=== PATIENT | female | born 1980 | race Hispanic/Latino ===

== ENCOUNTER 2018-07-14 19:43 | Day surgery (SDC) | payer OTHER ==
[2018-07-14 20:19] VITALS: BMI 34.6
--- NOTE | 2018-07-14 21:29 | ER ---
DATE OF SERVICE: 07/14/2018 TIME OF SERVICE: 2055 hours. PRESENTING COMPLAINT: Occasional contractions at 37 weeks. HISTORY OF PRESENT ILLNESS: Ms. Esteban Zee is a 38-year-old, G9, P6, AB2 at 37-1/2 weeks gestation, who sees Dr. Addison. Antepartum record is not available on the unit. The patient reports she had intercourse last night, had some contractions today. Denies rupture of membranes. Denies bleeding. Reports an active fetus. 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 No labs are available in the [facility] computer. The patient reports an uncomplicated . Reports x6, SAB x2. MEDICAL HISTORY: Denies. SURGICAL HISTORY: Denies. ALLERGIES: DENIES. MEDICATIONS: vitamins. SOCIAL HISTORY: Denies tobacco, alcohol, or drug use. FAMILY HISTORY: Noncontributory. REVIEW OF SYSTEMS: Noncontributory. PHYSICAL EXAMINATION: GENERAL: female, in no acute distress. VITAL SIGNS: Blood pressure 108/72, pulse 85, respirations 18, and temperature 96. HEENT: Within normal limits. LUNGS: Clear to auscultation bilaterally. HEART: Regular rate and rhythm. ABDOMEN: Soft, nontender. No rebound. No guarding. No palpable contractions. GENITALIA: Vulva without lesions. Vaginal exam by RN reveals cervix is 3, 50, -2, cephalic, bag of water intact, ballots with ease. This is consistent with the patient's reported exam was in the office last week. monitoring is carried out for greater than 30 minutes revealed a baseline of 140s to 150s, positive accelerations to greater than 160. No decelerations. Only occasional uterine irritability less than q.15 minutes. IMPRESSION: Grand multiparas, elderly multigravida patient without evidence of active labor at 37 weeks' gestation. PLAN: Discharge home, keep scheduled followup with Dr. Addison. Job ID: [id number]
== END 2018-07-14 21:11 | disposition home or self-care (01) ==
LOC: L&D/OP 19:43
PROVIDERS: ATTEND Family Medicine
DX: O47.1 False labor at or after 37 completed weeks of gestation (principal); Z3A.37 37 weeks gestation of pregnancy
CPT/HCPCS: 99282

== ENCOUNTER 2018-07-29 05:30 | Inpatient (IN) | payer MEDICAID, OTHER, SELFPAY ==
[2018-07-29] MEDS: Lactated Ringer's 1,000 ML IV SCH ×2 (07:40→10:41)
[2018-07-29 07:49] VITALS: BMI 34.6
[2018-07-29] MEDS ORDERED: Methylergonovine 0.2 MG/ML VIAL IM PRN (08:03)
[2018-07-29] MEDS ORDERED: Butorphanol Tartrate 1 MG/ML VIAL SLOW IVP PRN (08:03)
[2018-07-29] MEDS ORDERED: Ibuprofen 800 MG TAB PO PRN (08:03)
[2018-07-29] MEDS ORDERED: Promethazine HCl 25 MG/ML VIAL IM PRN ×2 (08:03→10:56)
[2018-07-29] MEDS ORDERED: Misoprostol 200 MCG TAB PR PRN (08:03)
[2018-07-29] MEDS ORDERED: Lidocaine 1% (PF) 30 ML VIAL SC PRN (08:03)
[2018-07-29] MEDS ORDERED: Ondansetron PF 4 MG/2 ML Vial IVP PRN ×3 (08:03→14:13)
[2018-07-29] MEDS ORDERED: NS / Oxytocin 40 units/1000ml 1,000 ML IV PRN (08:03)
[2018-07-29] MEDS ORDERED: HYDROcodone/Acetaminophen 5/325 mg Tablet PO PRN ×3 (08:03→14:13)
[2018-07-29] MEDS ORDERED: NS w/ Oxytocin 10 units 500 ML IV SCH ×2 (08:03)
[2018-07-29] MEDS ORDERED: Diphenoxylate HCl/Atropine Tablet PO PRN (08:03)
[2018-07-29] MEDS ORDERED: Carboprost 250 MCG/ML AMP IM PRN (08:03)
[2018-07-29 08:27] LABS: Hemoglobin 11.6 g/dL (12.0-16.0); Mean Corpuscular HGB CONC 33.2 g/dL (32.0-36.0); Mean Corpuscular Hemoglobin 29.2 pg (27.0-31.0); Mean Corpuscular Volume 87.9 fL (78.0-98.0); Mean Platelet Volume 7.6 fL (7.4-10.4); Platelet Count 233 thou/uL (130-400); RBC Distribution Width 12.1 % (11.5-14.5); Red Blood Cell (RBC) Count 3.97 mill/uL (4.20-5.40); White Blood Cell (WBC) Count 8.2 thou/uL (4.8-10.8)
[2018-07-29 08:59] LABS: Syphilis Antibody Nonreactive (Nonreactive); Syphilis Antibody Index 0.03 S/CO (<1.00 Non-Reactive)
[2018-07-29 09:00] LABS: HBSAg Index 0.33 S/CO (0-0.99); Hep B Surf Ag Non-Reactive S/CO (NonReactive)
[2018-07-29] MEDS ORDERED: Fentanyl 4 mcg/Bup 0.1% Cadd 0 ML ONE (10:16)
[2018-07-29] MEDS ORDERED: Fentanyl 4 mcg/Bup 0.1% Cadd 100 ML ONE (10:17)
[2018-07-29] MEDS ORDERED: Lidocaine 1.5%/Epinephrine 1:200,000 5 ML AMPUL IJ ONE (10:33)
[2018-07-29] MEDS ORDERED: ePHEDrine/0.9% NaCl/PF SYRINGE 50 mg/10 ml SLOW IVP PRN (10:56)
[2018-07-29] MEDS ORDERED: Acetaminophen 325 MG TAB PO PRN (10:56)
[2018-07-29] MEDS ORDERED: diphenhydrAMINE 50 MG/ML VIAL IVP PRN (10:56)
[2018-07-29] MEDS ORDERED: Naloxone HCl 0.4 mg/ml Vial IVP PRN ×2 (10:56)
[2018-07-29] MEDS ORDERED: Eucerin (Mineral Oil/Petrolatum,White) 30 gm Jar TOP PRN (10:56)
[2018-07-29] MEDS ORDERED: Lactated Ringer's 500 ML IV PRN (10:56)
[2018-07-29] MEDS ORDERED: Communication Order-Pharmacy FS SCH (11:00)
[2018-07-29] MEDS ORDERED: Fentanyl 4 mcg/Bupivacaine 0.1% Cassette 100 ML EPIDURAL SCH (11:00)
[2018-07-29] MEDS ORDERED: Bupivacaine 0.25% HCL 30 ML VIAL ONE (11:11)
[2018-07-29] MEDS ORDERED: Sodium Chloride 0.9% (PF) 10 ML VIAL ONE (11:11)
[2018-07-29] MEDS ORDERED: Bisacodyl 10 MG SUPP PR PRN (14:13)
[2018-07-29] MEDS ORDERED: Lanolin Ointment 7 GM TUBE TOP PRN (14:13)
[2018-07-29] MEDS ORDERED: Benzocaine-Menthol 82.5 ML CAN TOP PRN (14:13)
[2018-07-29] MEDS ORDERED: NS / Oxytocin 40 units/1000ml 1,000 ML IV SCH (14:13)
[2018-07-29] MEDS ORDERED: Milk Of Magnesia 30 ML UDCUP PO PRN (14:13)
[2018-07-29] MEDS ORDERED: diphenhydrAMINE 25 MG CAP PO PRN (14:13)
[2018-07-29] MEDS: Ibuprofen 800 MG TAB PO SCH ×2 (14:31→21:25)
[2018-07-29] MEDS: Ferrous Sulfate 325 MG TAB PO SCH (18:11)
[2018-07-29] MEDS: Docusate Calcium (SURFAK) 240 MG CAP PO SCH (21:25)
[2018-07-30] MEDS: Ibuprofen 800 MG TAB PO SCH ×2 (05:12→13:58)
[2018-07-30 05:32] LABS: Hemoglobin 10.6 g/dL (12.0-16.0); Mean Corpuscular HGB CONC 33.4 g/dL (32.0-36.0); Mean Corpuscular Hemoglobin 29.9 pg (27.0-31.0); Mean Corpuscular Volume 89.4 fL (78.0-98.0); Mean Platelet Volume 7.8 fL (7.4-10.4); Platelet Count 200 thou/uL (130-400); RBC Distribution Width 12.1 % (11.5-14.5); Red Blood Cell (RBC) Count 3.54 mill/uL (4.20-5.40); White Blood Cell (WBC) Count 9.3 thou/uL (4.8-10.8)
[2018-07-30] MEDS ORDERED: Prenatal Vitamin 1 TAB PO SCH (09:00)
[2018-07-30] MEDS: Ferrous Sulfate 325 MG TAB PO SCH (10:30)
[2018-07-30] MEDS: Docusate Calcium (SURFAK) 240 MG CAP PO SCH (10:30)
[2018-07-30 11:19] VITALS: BP 101/55; TEMP 98.2
== END 2018-07-30 15:25 | disposition home or self-care (01) | DRG 807 ==
LOC: L&D 07:22 → 3SW 15:27
PROVIDERS: ADMIT Family Medicine; ATTEND Family Medicine
PROC: 10E0XZZ Delivery of Products of Conception, External Approach (ICD-10-PCS; principal; 2018-07-29)
PROC: 10907ZC Drainage of Amniotic Fluid, Therapeutic from Products of Conception, Via Natural or Artificial Opening (ICD-10-PCS; 2018-07-29)
PROC: 3E033VJ Introduction of Other Hormone into Peripheral Vein, Percutaneous Approach (ICD-10-PCS; 2018-07-29)
DX: O80 Encounter for full-term uncomplicated delivery (principal); Z37.0 Single live birth; Z3A.39 39 weeks gestation of pregnancy; Z67.40 Type O blood, Rh positive
CPT/HCPCS: 36415; 51702; 85027; 86780; 86850; 86900; 86901; 87340; J2590; J3490; S0020

== ENCOUNTER 2019-04-30 14:52 | Outpatient (CLI) | payer OTHER ==
--- NOTE | 2019-04-30 16:09 | ULT ---
OB ultrasound: HISTORY: anatomy FINDINGS: A single live intrauterine gestation is seen with measurements corresponding to an estimated gestatio nal age of 23 weeks 0 days and FLAKO at 08/27/2019. The estimated weight measures 551 g or 1 pound and 3 ounces; 18 percentile by Hadlock criteria. measurements are as follows: BPD: 5.56 cm, 23 weeks 0 days HC: 20.86 cm, 23 weeks 0 days AC: 18.15 cm, 23 weeks 0 days FL: 4.01 cm, 23 weeks 0 days heart rate measures 135 bpm. LEYLA measures 14.3 cm. Placenta is posteriorly located without evid ence of placenta previa. Cervical length measures 5 cm. A three-vessel cord, cord insertion, kidneys, bladder, stomach, four chambered heart, lateral v entricles, cerebellum, spine, lips/nose, upper and lower extremities are visualized. No definite anomalies are seen. IMPRESSION: Single live IUP of 23 weeks 0 days estimated gestational age and FLAKO at 08/27/2019. Transcribed Date/Time: 04/30/2019 4:15 PM
== END 2019-04-30 14:53 | disposition home or self-care (01) ==
LOC: BICULT 14:52
PROVIDERS: ATTEND Nurse Practitioner
DX: O09.92 Supervision of high risk pregnancy, unspecified, second trimester (principal); Z3A.23 23 weeks gestation of pregnancy
CPT/HCPCS: 76805

== ENCOUNTER 2019-08-13 12:25 | Day surgery (SDC) | payer OTHER ==
[2019-08-13 12:34] VITALS: BP 115/57; TEMP 98.7; BMI 38.4
--- NOTE | 2019-08-13 15:26 | ULT ---
ULTRASOUND OB LIMITED WITH BIOPHYSICAL PROFILE: HISTORY: Failed non-stress test. COMPARISON: None. FINDINGS: Rela-time, sue scale, with color and spectral analysis of the gravid uterus was performed via transa bdominal approach. Single viable intrauterine with average ultrasound age 38 weeks 0 days, estimated date of d elivery 08/27/2019. Estimated weight is 7 pounds 1 ounce. Biometry: Biparietal diameter: 9.33 cm, 38 weeks 0 days. Head circumference: 34.62 cm, 40 weeks 1 day. Abdominal circumference: 32.93 cm, 36 weeks 6 days. Femur length: 7.24 cm, 37 weeks 0 days. LEYLA: 10.6 cm. Heart rate documented at 132 b.p.m. Biophysical profile score of 8/8. The position is vertex and placenta is posterior. IMPRESSION: Biophysical profile score of 8/8. POS: [facility]
== END 2019-08-13 14:16 | disposition home health service (06) ==
LOC: L&D/OP 12:25
PROVIDERS: ATTEND Family Medicine
DX: O36.8130 Decreased fetal movements, third trimester, not applicable or unspecified (principal); Z3A.38 38 weeks gestation of pregnancy
CPT/HCPCS: 59025; 76815; 76819; 99282

== ENCOUNTER 2019-08-17 05:30 | Inpatient (IN) | payer MEDICAID, OTHER, SELFPAY ==
[2019-08-17] MEDS ORDERED: Ibuprofen 800 MG TAB PO PRN (07:49)
[2019-08-17] MEDS ORDERED: Diphenoxylate HCl/Atropine Tablet PO PRN (07:49)
[2019-08-17] MEDS ORDERED: Butorphanol Tartrate 1 MG/ML VIAL SLOW IVP PRN (07:49)
[2019-08-17] MEDS ORDERED: Penicillin G Potassium 5 MILL.UNITS in Sodium Chloride 0.9% 100 ML IVPB SCH (07:49)
[2019-08-17] MEDS ORDERED: Misoprostol 200 MCG TAB PR PRN (07:49)
[2019-08-17] MEDS ORDERED: Carboprost 250 MCG/ML AMP IM PRN (07:49)
[2019-08-17] MEDS ORDERED: hydrALAZINE 20 MG/ML VIAL SLOW IVP PRN ×2 (07:49→15:11)
[2019-08-17] MEDS ORDERED: HYDROcodone/Acetaminophen 5/325 mg Tablet PO PRN ×2 (07:49→15:11)
[2019-08-17] MEDS ORDERED: Lidocaine 1% (PF) 30 ML VIAL SC PRN (07:49)
[2019-08-17] MEDS ORDERED: NS w/ Oxytocin 10 units 500 ML IV SCH ×2 (07:49)
[2019-08-17] MEDS ORDERED: Ondansetron PF 4 MG/2 ML Vial IVP PRN ×3 (07:49→15:11)
[2019-08-17] MEDS ORDERED: Methylergonovine 0.2 MG/ML VIAL IM PRN (07:49)
[2019-08-17] MEDS ORDERED: Promethazine HCl 25 MG/ML VIAL IM PRN ×3 (07:49→15:11)
[2019-08-17 07:51] VITALS: BMI 38.6
[2019-08-17 08:47] LABS: Hemoglobin 11.3 g/dL (12.0-16.0); Mean Corpuscular HGB CONC 34.1 g/dL (32.0-36.0); Mean Corpuscular Hemoglobin 30.6 pg (27.0-31.0); Mean Corpuscular Volume 89.6 fL (78.0-98.0); Mean Platelet Volume 8.1 fL (7.4-10.4); Platelet Count 206 thou/uL (130-400); RBC Distribution Width 12.6 % (11.5-14.5); Red Blood Cell (RBC) Count 3.69 mill/uL (4.20-5.40); White Blood Cell (WBC) Count 7.6 thou/uL (4.8-10.8)
[2019-08-17 09:20] LABS: HBSAg Index 0.31 S/CO (0-0.99); Hep B Surf Ag Non-Reactive S/CO (NonReactive)
[2019-08-17 09:22] LABS: Syphilis Antibody Nonreactive (Nonreactive); Syphilis Antibody Index 0.03 S/CO (<1.00 Non-Reactive)
[2019-08-17] MEDS ORDERED: Lidocaine 2% MPF 10 ML AMP (For Epidural Use) ONE (09:26)
[2019-08-17] MEDS ORDERED: Fentanyl 4 mcg/Bup 0.1% Cadd 100 ML ONE (09:35)
[2019-08-17] MEDS ORDERED: Lactated Ringer's 500 ML IV PRN (10:30)
[2019-08-17] MEDS ORDERED: diphenhydrAMINE 50 MG/ML VIAL IVP PRN (10:30)
[2019-08-17] MEDS ORDERED: Acetaminophen 325 MG TAB PO PRN (10:30)
[2019-08-17] MEDS ORDERED: Fentanyl 4 mcg/Bupivacaine 0.1% Cassette 100 ML EPIDURAL SCH (10:30)
[2019-08-17] MEDS ORDERED: EPHEDRINE 25 MG/5 ML SYRINGE SLOW IVP PRN (10:30)
[2019-08-17] MEDS ORDERED: Naloxone HCl 0.4 mg/ml Vial IVP PRN ×2 (10:30)
[2019-08-17] MEDS ORDERED: Communication Order-Pharmacy FS PRN (10:30)
[2019-08-17] MEDS: Lactated Ringer's 1,000 ML IV SCH ×2 (10:36→11:35)
[2019-08-17] MEDS ORDERED: Misoprostol 200 MCG TAB ONE (11:47)
[2019-08-17] MEDS ORDERED: NS / Oxytocin 40 units/1000ml 1,000 ML ONE (11:48)
[2019-08-17] MEDS ORDERED: Carboprost 250 MCG/ML AMP ONE (11:48)
[2019-08-17] MEDS ORDERED: Methylergonovine 0.2 MG/ML VIAL ONE (11:48)
[2019-08-17] MEDS ORDERED: Penicillin G 2.5 MILL.units 2.5 MILL.UNITS in Premix Bag 1 BAG IVPB SCH (12:00)
[2019-08-17] MEDS: NS / Oxytocin 40 units/1000ml 1,000 ML IV PRN ×2 (14:05→15:07)
[2019-08-17] MEDS ORDERED: Bisacodyl 10 MG SUPP PR PRN (15:11)
[2019-08-17] MEDS ORDERED: diphenhydrAMINE 25 MG CAP PO PRN (15:11)
[2019-08-17] MEDS ORDERED: Milk Of Magnesia 30 ML UDCUP PO PRN (15:11)
[2019-08-17] MEDS ORDERED: Lanolin Ointment 7 GM TUBE TOP PRN (15:11)
[2019-08-17] MEDS ORDERED: NS / Oxytocin 40 units/1000ml 1,000 ML IV SCH (15:11)
[2019-08-17] MEDS ORDERED: Ibuprofen 800 MG TAB PO SCH (16:00)
[2019-08-17] MEDS: Ferrous Sulfate 325 MG TAB PO SCH (17:30)
[2019-08-17] MEDS: Ibuprofen 800 MG TAB PO SCH (20:39)
[2019-08-17] MEDS: Docusate Calcium (SURFAK) 240 MG CAP PO SCH (20:39)
[2019-08-18] MEDS: Ibuprofen 800 MG TAB PO SCH ×2 (06:14→15:35)
[2019-08-18 06:44] LABS: Hemoglobin 11.3 g/dL (12.0-16.0); Mean Corpuscular HGB CONC 32.8 g/dL (32.0-36.0); Mean Corpuscular Hemoglobin 30.2 pg (27.0-31.0); Mean Corpuscular Volume 92.2 fL (78.0-98.0); Mean Platelet Volume 7.9 fL (7.4-10.4); Platelet Count 183 thou/uL (130-400); RBC Distribution Width 12.7 % (11.5-14.5); Red Blood Cell (RBC) Count 3.73 mill/uL (4.20-5.40); White Blood Cell (WBC) Count 8.8 thou/uL (4.8-10.8)
[2019-08-18] MEDS: Ferrous Sulfate 325 MG TAB PO SCH ×2 (07:45→15:51)
[2019-08-18] MEDS: HYDROcodone/Acetaminophen 5/325 mg Tablet PO PRN ×2 (08:40→12:33)
[2019-08-18] MEDS: Docusate Calcium (SURFAK) 240 MG CAP PO SCH (08:40)
[2019-08-18] MEDS ORDERED: Prenatal Vitamin 1 TAB PO SCH (09:00)
[2019-08-18] MEDS ORDERED: Adacel (T-DAP) 0.5 ML SYRINGE IM ONE (09:00)
[2019-08-18 11:07] VITALS: BP 108/58; TEMP 98.3
== END 2019-08-18 18:10 | disposition home or self-care (01) | DRG 807 ==
LOC: UNDOADMIN 07:32 → L&D-LIB 07:32 → 3SW 16:56
PROVIDERS: ADMIT Family Medicine; ATTEND Family Medicine
PROC: 10E0XZZ Delivery of Products of Conception, External Approach (ICD-10-PCS; principal; 2019-08-17)
PROC: 10907ZC Drainage of Amniotic Fluid, Therapeutic from Products of Conception, Via Natural or Artificial Opening (ICD-10-PCS; 2019-08-17)
DX: O99.824 Streptococcus B carrier state complicating childbirth (principal); Z37.0 Single live birth; O99.02 Anemia complicating childbirth; D64.9 Anemia, unspecified; Z3A.39 39 weeks gestation of pregnancy
CPT/HCPCS: 36415; 85027; 86780; 86850; 86900; 86901; 87340; J2001; J2210; J2540; J2590; J3490

== ENCOUNTER 2021-04-29 13:04 | Emergency (ER) | payer MEDICAID, OTHER ==
[2021-04-29 18:35] LABS: SARS-CoV-2 PCR by NAA DETECTED (NotDetected)
== END 2021-04-29 14:51 | disposition home or self-care (01) ==
LOC: ERS 13:04
DX: U07.1 COVID-19 (principal); R53.81 Other malaise
CPT/HCPCS: 99283; U0003; U0005